=== PATIENT | female | born 1940 | race Caucasian/White ===

== ENCOUNTER 2021-02-10 21:51 | Observation (INO) ==
[2021-02-11] MEDS ORDERED: Naloxone 0.4 MG/ML INJ IVP PRN (00:29)
[2021-02-11] MEDS ORDERED: Ondansetron 4 MG/2 ML VIAL IVP PRN (00:29)
[2021-02-11] MEDS ORDERED: Melatonin 3 MG TABLET PO PRN (00:29)
[2021-02-11] MEDS: 0.9 % Sodium Chloride 1,000 ML IVC SCH ×2 (01:24→09:48)
[2021-02-11 04:50] LABS: Basophils # 0.1 K/mcL (0.0-0.2); Basophils % 1.1 %; Eosinophils # 0.3 K/mcL (0.0-0.6); Eosinophils % 4.7 %; Hematocrit 33.8 % (35.3-44.9); Hemoglobin 11.3 g/dL (11.5-15.4); Immature Granulocytes % 0.3 % (0-4); Lymphocytes # 2.8 K/mcL (0.6-4.6); Lymphocytes % 43.5 %; Mean Corpuscular HGB Conc 33.4 g/dL (31.6-35.5); Mean Corpuscular Volume 92.9 fL (83.0-100.0); Mean Platelet Volume 9.2 fL (9.4-12.4); Monocytes # 0.5 K/mcL (0.0-1.3); Monocytes % 8.1 %; Neutrophils # 2.8 K/mcL (1.6-8.9); Platelet Count 212 K/mcL (140-400); Red Blood Count 3.64 M/mcL (3.82-4.97); Red Cell Distribution Width 13.2 % (11.5-14.5); Segmented Neutrophils % 42.3 %; White Blood Count 6.5 K/mcL (4.3-11.1)
[2021-02-11] MEDS: Cefepime HCl 2,000 MG in Water for inj. (sterile) 20 ML IVP SCH ×2 (05:03→18:46)
[2021-02-11 05:04] LABS: Alanine Aminotransferase 11 Units/L (7-52); Albumin/Globulin Ratio 1.9 (1.1-2.2); Alkaline Phosphatase 70 Units/L (34-104); Aspartate Amino Transferase 11 Units/L (13-39); BUN/Creatinine Ratio 25 (6-26); Bilirubin,Total 0.6 mg/dL (0.3-1.0); Blood Urea Nitrogen 23 mg/dL (8-23); Calcium 9.7 mg/dL (8.6-10.3); Carbon Dioxide 31 mEq/L (23-29); Chloride 104 mEq/L (98-107); Globulin 2.1 g/dL (2.4-3.5); Glucose 95 mg/dL (70-105); Magnesium 1.9 mg/dL (1.6-2.6); Osmolality,Calculated 295 (280-300); Phosphorous 2.2 mg/dL (2.7-4.5); Potassium 3.3 mEq/L (3.5-5.1); Sodium 141 mEq/L (136-145); Total Protein 6.1 g/dL (6.4-8.9); eGFR For African Americans > 60 (> 60); eGFR For Non-African Americans 59 (> 60)
[2021-02-11] MEDS: hydroCHLOROthiazide 25 MG TABLET PO SCH (09:17)
[2021-02-11] MEDS: Aspirin Enteric Coated 81 MG Tablet PO SCH (09:17)
[2021-02-11] MEDS: Verapamil ER (24 HR) 120 MG TABLET.ER PO SCH (09:18)
[2021-02-11] MEDS: *HR* Enoxaparin 40 MG/0.4 ML SYRINGE SQ SCH (09:18)
[2021-02-11] MEDS: Tiotropium 10 INH DOSE IH SCH (10:48)
[2021-02-11] MEDS: Budesonide/Formoterol 160/4.5 1 PUFF INH IH SCH ×2 (10:49→22:06)
[2021-02-11] MEDS: Acetaminophen 325 MG TABLET PO PRN (22:05)
[2021-02-12] MEDS: Cefepime HCl 2,000 MG in Water for inj. (sterile) 20 ML IVP SCH ×2 (06:06→16:50)
[2021-02-12] MEDS: Sennosides/Docusate Sodium TABLET PO PRN (06:07)
[2021-02-12] MEDS: *HR* Enoxaparin 40 MG/0.4 ML SYRINGE SQ SCH (06:07)
[2021-02-12] MEDS: Verapamil ER (24 HR) 120 MG TABLET.ER PO SCH (09:04)
[2021-02-12] MEDS: Aspirin Enteric Coated 81 MG Tablet PO SCH (09:04)
[2021-02-12] MEDS: hydroCHLOROthiazide 25 MG TABLET PO SCH (09:04)
[2021-02-12] MEDS: Budesonide/Formoterol 160/4.5 1 PUFF INH IH SCH ×2 (11:11→20:33)
[2021-02-12] MEDS: Tiotropium 10 INH DOSE IH SCH (11:11)
[2021-02-12] MEDS: Acetaminophen 325 MG TABLET PO PRN (16:06)
[2021-02-13] MEDS: Cefepime HCl 2,000 MG in Water for inj. (sterile) 20 ML IVP SCH (05:58)
[2021-02-13] MEDS: *HR* Enoxaparin 40 MG/0.4 ML SYRINGE SQ SCH (05:58)
[2021-02-13] MEDS ORDERED: Levothyroxine 25 MCG TABLET PO SCH (06:30)
[2021-02-13 06:37] LABS: Hematocrit 34.6 % (35.3-44.9); Hemoglobin 11.5 g/dL (11.5-15.4); Mean Corpuscular HGB Conc 33.2 g/dL (31.6-35.5); Mean Corpuscular Volume 93.3 fL (83.0-100.0); Mean Platelet Volume 9.1 fL (9.4-12.4); Platelet Count 218 K/mcL (140-400); Red Blood Count 3.71 M/mcL (3.82-4.97); Red Cell Distribution Width 13.2 % (11.5-14.5); White Blood Count 7.2 K/mcL (4.3-11.1)
[2021-02-13 06:55] LABS: BUN/Creatinine Ratio 20 (6-26); Blood Urea Nitrogen 20 mg/dL (8-23); Calcium 9.9 mg/dL (8.6-10.3); Carbon Dioxide 31 mEq/L (23-29); Chloride 103 mEq/L (98-107); Glucose 94 mg/dL (70-105); Osmolality,Calculated 290 (280-300); Potassium 3.9 mEq/L (3.5-5.1); Sodium 139 mEq/L (136-145); eGFR For African Americans > 60 (> 60); eGFR For Non-African Americans 54 (> 60)
[2021-02-13] MEDS: Aspirin Enteric Coated 81 MG Tablet PO SCH (08:53)
[2021-02-13] MEDS: hydroCHLOROthiazide 25 MG TABLET PO SCH (08:53)
[2021-02-13] MEDS: Verapamil ER (24 HR) 120 MG TABLET.ER PO SCH (08:54)
[2021-02-13] MEDS: Sennosides/Docusate Sodium TABLET PO PRN (08:58)
[2021-02-13] MEDS: Tiotropium 10 INH DOSE IH SCH (09:40)
[2021-02-13] MEDS: Budesonide/Formoterol 160/4.5 1 PUFF INH IH SCH (09:42)
[2021-02-13 11:54] VITALS: O2SAT 93
[2021-02-13] MEDS ORDERED: Fosfomycin Tromethamine 3 GM Packet PO ONE (12:30)
[2021-02-13 16:59] VITALS: BP 125/81; PULSE 68; RESP 20; TEMP 98.2
== END 2021-02-13 16:57 | disposition home or self-care (01) ==
LOC: INPGRE
PROVIDERS: ADMIT Family Medicine; ATTEND Family Medicine